=== PATIENT | male | born 1960 | race Caucasian/White ===

== ENCOUNTER 2018-01-29 22:10 | Emergency (ER) | payer MEDICARE, MEDICAID ==
[~2018-01-29] VITALS: Ht 188 cm; Wt 127.2 kg
[~2018-01-29 22:10] MED LIST: ATOR80TA PO; CARB1TAB23 PO; CARV25TA PO; CLOP75TA15 PO; DABI150C PO; FURO-150 PO; GLIM4TAB79 PO; LEVA15HF4 INH; POTA8CAP9 PO; TRAM50TA2 PO; TRAZ150T78 PO; VALS160T2 PO
[2018-01-29 22:49] LABS: BASOPHILS # (AUTO) 0.1 X10'3 (0-0.2); BASOPHILS % (AUTO) 0.4 % (0-1); EOSINOPHILS # (AUTO) 0.3 X10'3 (0-0.9); EOSINOPHILS % (AUTO) 1.9 % (0-6); HEMATOCRIT 52.9 % (42.0-52.0); HEMOGLOBIN 17.4 g/dl (14.0-17.9); LYMPHOCYTES # (AUTO) 3.3 X10'3 (1.1-4.8); LYMPHOCYTES % (AUTO) 23.8 % (21-51); MEAN CORPUSCULAR HEMOGLOBIN 31.7 PG (27.0-31.0); NEUTROPHILS # (AUTO) 9.2 X10'3 (1.8-7.7); NEUTROPHILS % (AUTO) 66.9 % (42-75); PLATELET COUNT 202 X10'3 (140-440); RED BLOOD COUNT 5.51 X10'6 (4.70-6.10); RED CELL DISTRIBUTION WIDTH 14.7 % (11.5-14.5); WHITE BLOOD COUNT 13.8 X10'3 (4.5-11.0)
[2018-01-29 23:05] LABS: ALANINE AMINOTRANSFERASE 9 U/L (12-78); ALBUMIN 3.4 G/DL (3.4-5.0); ALBUMIN/GLOBULIN RATIO 0.8 (1.1-1.5); ALKALINE PHOSPHATASE 74 IU/L (46-116); ANION GAP 10 (8-16); ASPARTATE AMINO TRANSFERASE 16 U/L (10-37); BILIRUBIN,TOTAL 0.4 MG/DL (0.1-1.0); BLOOD UREA NITROGEN 32 MG/DL (7-18); BUN/CREATININE RATIO 23.9 (5.4-32.0); CALCIUM 8.9 MG/DL (8.5-10.1); CHLORIDE 100 MMOL/L (99-107); CREATININE 1.34 MG/DL (0.60-1.10); GLUCOSE 227 MG/DL (70-104); POTASSIUM 4.3 MMOL/L (3.5-5.1); SODIUM 138 MMOL/L (135-145); TOTAL PROTEIN 7.6 G/DL (6.4-8.2); eGFR 55 ML/MIN
[2018-01-29 23:14] LABS: INR 1.2 INR; PARTIAL THROMBOPLASTIN TIME 40 SECONDS (22-32)
[2018-01-30] MEDS ORDERED: clindamycin phosphate 150mg/ml inj. IM ONE
[2018-01-30] MEDS ORDERED: CLIN300C70 PO (00:03)
[2018-01-30 00:16] VITALS: BP 140/77
== END 2018-01-30 00:19 | disposition home or self-care (01) ==
LOC: ER 22:11
DX: L03.115 Cellulitis of right lower limb (principal); I10 Essential (primary) hypertension; E11.9 Type 2 diabetes mellitus without complications; Z98.890 Other specified postprocedural states; Z79.899 Other long term (current) drug therapy; Z86.718 Personal history of other venous thrombosis and embolism; Z79.01 Long term (current) use of anticoagulants
CPT/HCPCS: 36415; 80053; 85025; 85610; 85730; 93005; 93971; 96372; 99284; J3490

== ENCOUNTER 2018-10-22 21:35 | Emergency (ER) | payer MEDICARE, MEDICAID ==
[~2018-10-22] VITALS: Ht 190.5 cm; Wt 136.1 kg
[~2018-10-22 21:35] MED LIST changes: +GLIM4TAB4 PO; -GLIM4TAB79 PO; +POTA8CAP20 PO; -POTA8CAP9 PO
[2018-10-22] MEDS ORDERED: ondansetron/PF 4mg/2ml inj IV ONE ×2 (21:45→22:45)
[2018-10-22] MEDS ORDERED: fentaNYL/PF 50MCG/1 ML 2ML syringe IV ONE ×3 (21:45→23:20)
[2018-10-22] MEDS ORDERED: HYDR-4353 PO (22:19)
[2018-10-22] MEDS ORDERED: ONDA4TAB6 PO (22:19)
[2018-10-22 22:21] VITALS: BP 136/73
[2018-10-22] MEDS ORDERED: HYDROcodone/acetaminophen 10/325mg tab PO ONE (22:45)
== END 2018-10-22 23:44 | disposition home or self-care (01) ==
LOC: ER 21:35
DX: S42.211A Unspecified displaced fracture of surgical neck of right humerus, initial encounter for closed fracture (principal); I48.91 Unspecified atrial fibrillation; I10 Essential (primary) hypertension; E11.9 Type 2 diabetes mellitus without complications; Z95.1 Presence of aortocoronary bypass graft; Z98.890 Other specified postprocedural states; Z79.899 Other long term (current) drug therapy; W18.09XA Striking against other object with subsequent fall, initial encounter; Y93.89 Activity, other specified; Y92.89 Other specified places as the place of occurrence of the external cause; Y99.8 Other external cause status
CPT/HCPCS: 73030; 96374; 96375; 96376; 99284; J2405; J3010

== ENCOUNTER 2019-10-05 01:10 | Emergency (ER) | payer MEDICARE, MEDICAID ==
[~2019-10-05] VITALS: Ht 188 cm; Wt 122.7 kg
[~2019-10-05 01:10] MED LIST changes: -GLIM4TAB4 PO; +GLIM4TAB7 PO; +ONDA4TAB6 PO
[2019-10-05 01:17] VITALS: BP 108/69
--- NOTE | 2019-10-05 01:41 | NUR ---
Pt alert/oriented states he did not hit his head, but rather slipped off the bed and landed on his buttocks.
== END 2019-10-05 03:33 | disposition home or self-care (01) ==
LOC: ER 01:10
DX: M96.831 Postprocedural hemorrhage of a musculoskeletal structure following other procedure (principal); I48.91 Unspecified atrial fibrillation; I10 Essential (primary) hypertension; E11.9 Type 2 diabetes mellitus without complications; Z95.1 Presence of aortocoronary bypass graft; Z98.890 Other specified postprocedural states; Z72.89 Other problems related to lifestyle; Z79.899 Other long term (current) drug therapy
CPT/HCPCS: 99284

== ENCOUNTER 2019-12-01 07:40 | Emergency (ER) | payer MEDICARE, MEDICAID ==
[~2019-12-01] VITALS: Ht 165.1 cm; Wt 127.3 kg
--- NOTE | 2019-12-01 10:01 | NUR ---
discussed pt/s c/o nausea w/ blanca burdick; new order for zofran 4mg po recevied
--- NOTE | 2019-12-01 10:09 | NUR ---
Patient resting in position of comfort, visualized wound and aknowledged order for Zofran for patient's nausea.
[2019-12-01] MEDS ORDERED: ondansetron 4mg rapidly disintigrating tab PO ONE (10:10)
--- NOTE | 2019-12-01 11:07 | NUR ---
Patient states relief from nausea, resting comfortably
[2019-12-01] MEDS ORDERED: CefTRIAXone/D5W-Rocephin 1gm 50 ML IV ONE (11:50)
[2019-12-01] MEDS ORDERED: normal saline 1000ML IV soln IVB ONE ×3 (11:50→18:30)
[2019-12-01] MEDS ORDERED: diltiazem 5mg/ml 5ml inj. IV ONE ×3 (11:55→18:30)
[2019-12-01 12:27] LABS: BASOPHILS # (AUTO) 0.1 X10'3 (0-0.2); BASOPHILS % (AUTO) 0.3 % (0-1); EOSINOPHILS % (AUTO) 0.1 % (0-6); HEMATOCRIT 48.5 % (42.0-52.0); HEMOGLOBIN 16.2 g/dl (14.0-17.9); LYMPHOCYTES # (AUTO) 1.1 X10'3 (1.1-4.8); LYMPHOCYTES % (AUTO) 6.5 % (21-51); MEAN CORPUSCULAR HEMOGLOBIN 32.4 PG (27.0-31.0); MEAN CORPUSCULAR HGB CONC 33.5 g/dL (33.0-36.5); MEAN CORPUSCULAR VOLUME 96.8 FL (78-98); MEAN PLATELET VOLUME 7.9 FL (7.4-10.4); MONOCYTES # (AUTO) 1.6 X10'3 (0-0.9); MONOCYTES % (AUTO) 9.3 % (2-12); NEUTROPHILS # (AUTO) 14.7 X10'3 (1.8-7.7); NEUTROPHILS % (AUTO) 83.8 % (42-75); PLATELET COUNT 225 X10'3 (140-440); RED BLOOD COUNT 5.01 X10'6 (4.70-6.10); RED CELL DISTRIBUTION WIDTH 14.3 % (11.5-14.5); WHITE BLOOD COUNT 17.6 X10'3 (4.5-11.0)
--- NOTE | 2019-12-01 12:32 | NUR ---
Vascular in room with patient
[2019-12-01 12:43] LABS: ALANINE AMINOTRANSFERASE 29 U/L (12-78); ALBUMIN 3.4 G/DL (3.4-5.0); ALBUMIN/GLOBULIN RATIO 0.6 (1.1-1.5); ALKALINE PHOSPHATASE 86 IU/L (46-116); ANION GAP 9 (8-16); ASPARTATE AMINO TRANSFERASE 16 U/L (10-37); BILIRUBIN,TOTAL 0.6 MG/DL (0.1-1.0); BLOOD UREA NITROGEN 25 MG/DL (7-18); BUN/CREATININE RATIO 26.9 (5.4-32.0); CHLORIDE 98 MMOL/L (99-107); CREATININE 0.93 MG/DL (0.60-1.10); GLUCOSE 175 MG/DL (70-104); SODIUM 137 MMOL/L (135-145); TOTAL CARBON DIOXIDE 30.5 MMOL/L (24-32); TOTAL PROTEIN 8.8 G/DL (6.4-8.2); eGFR 84 ML/MIN
[2019-12-01] MEDS ORDERED: vancomycin/NS 1 GM ADD-VANTAGE 250 ML X 1 DOSE IV ONE (13:40)
--- NOTE | 2019-12-01 13:50 | NUR ---
Spoke to Sherrie Tam and Dr. Baldwin about patient's complaint of pain and persisting elevated heart rate. Order for 4mg morphine IV, Zofran 4mg IV, and Cardizem 10mg IV given by Dr. Baldwin and Sherrie.
[2019-12-01] MEDS ORDERED: ondansetron/PF 4mg/2ml inj IV ONE (13:55)
[2019-12-01] MEDS ORDERED: morphine 4 MG/ML inj SYRINge IV ONE ×3 (13:55→20:25)
[2019-12-01] MEDS ORDERED: iohexol 300mg/ml 100ml inj. ONE (14:10)
[2019-12-01] MEDS ORDERED: MESSAGE TO NURSING PO SCH (14:35)
--- NOTE | 2019-12-01 14:45 | NUR ---
Patient to CT. Called pharmacy to confirm patient not taking any Metformin containing medications.
--- NOTE | 2019-12-01 15:14 | NUR ---
Patient requests milk and more pain medication. Sherrie Tam notified and order for 4mg morphine IV obtained. She wants him to wait for CT read before any food or drink.
[2019-12-01] MEDS ORDERED: TRAZ-256 PO (16:23)
[2019-12-01] MEDS ORDERED: GABA300C PO (16:23)
[2019-12-01] MEDS ORDERED: APIX5TAB3 PO (16:23)
[2019-12-01] MEDS ORDERED: EZET10TA6 PO (16:23)
[2019-12-01] MEDS ORDERED: CARV12.5 PO (16:23)
[2019-12-01] MEDS ORDERED: HYDR-3972 PO (16:23)
[2019-12-01] MEDS ORDERED: DAPA10TA PO (16:23)
[2019-12-01] MEDS ORDERED: ALBU18HF2 INH (16:23)
[2019-12-01] MEDS ORDERED: piperacillin/tazo 4.5gm/100ml 100 ML IV STA (18:24)
--- NOTE | 2019-12-01 18:26 | NUR ---
PT GIVEN PITCHER OF ICE WATER. DINNER TRAY ORDERED. URINAL EMPTIED, 600 CC'S LIGHT YELLOW CLEAR URINE.
[2019-12-01] MEDS ORDERED: carVEDilol 12.5mg tablet PO ONE (18:30)
--- NOTE | 2019-12-01 18:32 | NUR ---
Spoke to Sherrie about heart rate which is elevated again. Additional orders placed.
[2019-12-01] MEDS ORDERED: gabapentin 300mg capsule PO ONE ×2 (21:50)
[2019-12-01 22:39] VITALS: BP 129/76
== END 2019-12-01 22:39 | disposition short-term general hospital (02) ==
LOC: ER 07:41
DX: T81.31XA Disruption of external operation (surgical) wound, not elsewhere classified, initial encounter (principal); L03.116 Cellulitis of left lower limb; I48.91 Unspecified atrial fibrillation; I10 Essential (primary) hypertension; E11.9 Type 2 diabetes mellitus without complications; Z95.1 Presence of aortocoronary bypass graft; Z98.890 Other specified postprocedural states; Z79.899 Other long term (current) drug therapy; Y92.89 Other specified places as the place of occurrence of the external cause
CPT/HCPCS: 36415; 73701; 80053; 83605; 85025; 85610; 87040; 93922; 93926; 93971; 96365; 96366; 96367; 96375; 96376; 99285; J0696; J2270; J2405; J2543; J3370; J7030; Q9967; J3490

== ENCOUNTER 2020-12-08 11:38 | Day surgery (SDC) | payer MEDICARE, MEDICAID ==
[2020-12-08] VITALS (12 sets, daily range): BP systolic 130–181; BP diastolic 67–118
[~2020-12-08] VITALS: Ht 190.5 cm; Wt 136.7 kg
[~2020-12-08 11:38] MED LIST changes: +ALBU18HF2 INH; +APIX5TAB3 PO; +CARV12.5 PO; -CARV25TA PO; -CLOP75TA15 PO; -DABI150C PO; +DAPA10TA PO; +EZET10TA6 PO; +GABA300C PO; +HYDR-3972 PO; -LEVA15HF4 INH; -ONDA4TAB6 PO; -POTA8CAP20 PO; -TRAM50TA2 PO; +TRAZ-256 PO; -TRAZ150T78 PO; -VALS160T2 PO
[2020-12-08] MEDS ORDERED: dextrose ORAL solution 15 GM/59 ML bottle PO PRN ×2 (12:00)
[2020-12-08] MEDS ORDERED: diphenhydrAMINE 25mg capsule PO PRN (12:00)
[2020-12-08] MEDS ORDERED: LORazepam 0.5 MG tablet PO PRN (12:00)
[2020-12-08] MEDS ORDERED: nitroGLYCERIN 0.4mg SUBLingual tab SL PRN (12:00)
[2020-12-08] MEDS ORDERED: glucagon, human recombinant 1mg kit SUBCUT PRN (12:00)
[2020-12-08] MEDS ORDERED: normal saline 1,000 ML IV SCH (12:00)
[2020-12-08] MEDS ORDERED: MESSAGE TO PHARMACY PO ONE (12:00)
[2020-12-08] MEDS ORDERED: dextrose 50%-water 50ml dispensing syringe IV PRN ×2 (12:00)
[2020-12-08] MEDS ORDERED: insulin Lispro (HumaLOG) vial - multi-dose SQ SCH (12:00)
[2020-12-08 12:41] LABS: BASOPHILS # (AUTO) 0.1 X10'3 (0-0.2); BASOPHILS % (AUTO) 0.6 % (0-1); EOSINOPHILS # (AUTO) 0.2 X10'3 (0-0.9); EOSINOPHILS % (AUTO) 2.3 % (0-6); HEMOGLOBIN 17.6 g/dl (14.0-17.9); LYMPHOCYTES # (AUTO) 2.5 X10'3 (1.1-4.8); LYMPHOCYTES % (AUTO) 26.9 % (21-51); MEAN CORPUSCULAR HEMOGLOBIN 32.6 PG (27.0-31.0); MEAN CORPUSCULAR HGB CONC 33.9 g/dL (33.0-36.5); MEAN CORPUSCULAR VOLUME 96.2 FL (78-98); MEAN PLATELET VOLUME 8.1 FL (7.4-10.4); MONOCYTES # (AUTO) 0.6 X10'3 (0-0.9); MONOCYTES % (AUTO) 6.1 % (2-12); NEUTROPHILS # (AUTO) 5.9 X10'3 (1.8-7.7); NEUTROPHILS % (AUTO) 64.1 % (42-75); PLATELET COUNT 218 X10'3 (140-440); RED BLOOD COUNT 5.41 X10'6 (4.70-6.10); RED CELL DISTRIBUTION WIDTH 14.9 % (11.5-14.5); WHITE BLOOD COUNT 9.2 X10'3 (4.5-11.0)
[2020-12-08 12:53] LABS: PARTIAL THROMBOPLASTIN TIME 26 SECONDS (22-32)
[2020-12-08 13:00] LABS: ALBUMIN 3.5 G/DL (3.4-5.0); ANION GAP 9 (8-16); BLOOD UREA NITROGEN 17 MG/DL (7-18); BUN/CREATININE RATIO 20.5 (5.4-32.0); CALCIUM 9.1 MG/DL (8.5-10.1); CHLORIDE 105 MMOL/L (99-107); CREATININE 0.83 MG/DL (0.60-1.10); GLUCOSE 206 MG/DL (70-104); POTASSIUM 4.2 MMOL/L (3.5-5.1); SODIUM 140 MMOL/L (135-145); TOTAL CARBON DIOXIDE 25.9 MMOL/L (24-32); eGFR > 90 ML/MIN
[2020-12-08] MEDS ORDERED: LIDOcaine 1% (10mg/ml)w/preservative injection 20ml MDV ONE (13:04)
[2020-12-08] MEDS ORDERED: nitroGLYCERIN-Tridil 50MG/D5W 250 ML IV ONE (13:04)
[2020-12-08] MEDS ORDERED: midazolam 1 mg/ML 2ml injection ONE ×2 (13:04→13:55)
[2020-12-08] MEDS ORDERED: fentaNYL/PF 50MCG/1 ML 2ML syringe ONE ×2 (13:04→13:55)
[2020-12-08] MEDS ORDERED: iohexol 350MG/ML 100ml bottle IV ONE (13:05)
[2020-12-08] MEDS ORDERED: iohexol 350 MG/ML 50ML vial IV ONE (13:05)
[2020-12-08] MEDS ORDERED: LORA10TA7 PO (13:11)
[2020-12-08] MEDS ORDERED: CARV25TA5 PO (13:11)
[2020-12-08] MEDS ORDERED: OXAZEpam 15mg capsule PO PRN (14:45)
[2020-12-08] MEDS ORDERED: normal saline 1000ml 1,000 ML IV SCH (14:45)
[2020-12-08] MEDS ORDERED: proCHLORperazine 10 MG/2 ml inj IV PRN (14:45)
[2020-12-08] MEDS ORDERED: FLU VACC QS2021-22(6MOS UP)/PF 60 MCG/0.5 ML SYRINGE IM ONE (14:45)
[2020-12-08] MEDS ORDERED: ondansetron/PF 4mg/2ml inj IV PRN (14:45)
[2020-12-08] MEDS ORDERED: HYDROcodone/acetaminophen 10/325mg tab PO PRN (14:45)
[2020-12-08] MEDS ORDERED: HYDROcodone/acetaminophen 5mg/325mg tablet PO PRN (14:45)
[2020-12-08] MEDS ORDERED: carVEDilol 12.5mg tablet PO ONE (15:00)
[2020-12-08] MEDS ORDERED: insulin glargine (Lantus) pen - multi-dose SQ SCH (21:00)
== END 2020-12-08 20:48 | disposition home or self-care (01) ==
LOC: SSTAY O 11:38
PROVIDERS: ATTEND Internal Medicine Cardiovascular Disease
DX: R94.39 Abnormal result of other cardiovascular function study (principal); I25.10 Atherosclerotic heart disease of native coronary artery without angina pectoris; E11.9 Type 2 diabetes mellitus without complications; F32.9 Major depressive disorder, single episode, unspecified; I10 Essential (primary) hypertension; J44.9 Chronic obstructive pulmonary disease, unspecified; I48.20 Chronic atrial fibrillation, unspecified; I42.9 Cardiomyopathy, unspecified; F41.1 Generalized anxiety disorder; F17.210 Nicotine dependence, cigarettes, uncomplicated; F12.90 Cannabis use, unspecified, uncomplicated; E78.5 Hyperlipidemia, unspecified; Z79.01 Long term (current) use of anticoagulants; Z79.84 Long term (current) use of oral hypoglycemic drugs; Z79.899 Other long term (current) drug therapy; Z98.890 Other specified postprocedural states
CPT/HCPCS: 36415; 71046; 80048; 82948; 83880; 85025; 85610; 85730; 93005; 93458; 99152; 99153; C1760; C1769; J1644; J2001; J2250; J3010; J7030; Q0163; Q9967; 93459; A4620; A6258; J1815; J3490

== ENCOUNTER 2021-05-24 11:07 | Emergency (ER) | payer MEDICARE, MEDICAID ==
[~2021-05-24] VITALS: Ht 190.5 cm; Wt 136.4 kg
[~2021-05-24 11:07] MED LIST changes: -ALBU18HF2 INH; -CARV12.5 PO; +CARV25TA5 PO; +LORA10TA7 PO
[2021-05-24 11:13] VITALS: BP 143/85
[2021-05-24] MEDS ORDERED: CYCL-1 PO (13:34)
[2021-05-24] MEDS ORDERED: ketorolac trometh. 30mg/ml inj. IM ONE (13:35)
[2021-05-24] MEDS ORDERED: orphenadrine citrate 60mg/2ml inj. IM ONE (13:35)
== END 2021-05-24 14:22 | disposition home or self-care (01) ==
LOC: ER 11:08
DX: S39.012A Strain of muscle, fascia and tendon of lower back, initial encounter (principal); M54.2 Cervicalgia; M25.511 Pain in right shoulder; G89.29 Other chronic pain; I48.91 Unspecified atrial fibrillation; I10 Essential (primary) hypertension; E11.9 Type 2 diabetes mellitus without complications; Z86.79 Personal history of other diseases of the circulatory system; Z95.5 Presence of coronary angioplasty implant and graft; Z72.89 Other problems related to lifestyle; Z79.899 Other long term (current) drug therapy; Z98.890 Other specified postprocedural states; X58.XXXA Exposure to other specified factors, initial encounter; Y93.89 Activity, other specified; Y92.89 Other specified places as the place of occurrence of the external cause; Y99.8 Other external cause status
CPT/HCPCS: 96372; 99284; J1885; J2360

== ENCOUNTER 2021-10-03 06:20 | Emergency (ER) | payer MEDICARE, MEDICAID ==
[~2021-10-03] VITALS: Ht 188 cm; Wt 136.4 kg
[~2021-10-03 06:20] MED LIST changes: +CARB-312 PO; -CARB1TAB23 PO; +CYCL-1 PO
[2021-10-03 06:32] VITALS: BP 136/88
[2021-10-03] MEDS ORDERED: COLC0.6T72 PO (07:22)
== END 2021-10-03 07:32 | disposition home or self-care (01) ==
LOC: ER 06:21
DX: M10.9 Gout, unspecified (principal); I10 Essential (primary) hypertension; E11.9 Type 2 diabetes mellitus without complications; G89.29 Other chronic pain; M54.50 Low back pain, unspecified
CPT/HCPCS: 99283

== ENCOUNTER 2022-01-15 17:01 | Emergency (ER) | payer MEDICARE, MEDICAID ==
[~2022-01-15] VITALS: Ht 190.5 cm; Wt 131.8 kg
[~2022-01-15 17:01] MED LIST changes: +COLC0.6T72 PO
[2022-01-15 17:42] VITALS: BP 149/98
[2022-01-15 18:23] LABS: BASOPHILS % (AUTO) 0.3 % (0-1); EOSINOPHILS # (AUTO) 0.1 X10'3 (0-0.9); MEAN CORPUSCULAR HEMOGLOBIN 30.3 PG (27.0-31.0); MEAN CORPUSCULAR HGB CONC 32.7 g/dL (33.0-36.5); MEAN CORPUSCULAR VOLUME 92.7 FL (78-98); MEAN PLATELET VOLUME 7.9 FL (7.4-10.4); MONOCYTES % (AUTO) 10.6 % (2-12); NEUTROPHILS # (AUTO) 6.4 X10'3 (1.8-7.7); NEUTROPHILS % (AUTO) 67.1 % (42-75); PLATELET COUNT 199 X10'3 (140-440); RED BLOOD COUNT 6.59 X10'6 (4.70-6.10); RED CELL DISTRIBUTION WIDTH 16.1 % (11.5-14.5); WHITE BLOOD COUNT 9.5 X10'3 (4.5-11.0)
[2022-01-15 18:30] LABS: HEMATOCRIT 61.1 % (42.0-52.0)
[2022-01-15 18:43] LABS: ALANINE AMINOTRANSFERASE 15 U/L (12-78); ALBUMIN 3.5 G/DL (3.4-5.0); ALBUMIN/GLOBULIN RATIO 0.7 (1.1-1.5); ALKALINE PHOSPHATASE 80 IU/L (46-116); ANION GAP 10 (8-16); ASPARTATE AMINO TRANSFERASE 13 U/L (10-37); BILIRUBIN,TOTAL 0.5 MG/DL (0.1-1.0); BLOOD UREA NITROGEN 20 MG/DL (7-18); CHLORIDE 100 MMOL/L (99-107); CREATININE 1.05 MG/DL (0.60-1.10); GLUCOSE 157 MG/DL (70-104); POTASSIUM 4.1 MMOL/L (3.5-5.1); SODIUM 140 MMOL/L (135-145); TOTAL CARBON DIOXIDE 29.8 MMOL/L (24-32); TOTAL PROTEIN 8.8 G/DL (6.4-8.2); eGFR 72 ML/MIN
[2022-01-16] MEDS ORDERED: normal saline 1000ML IV soln IVB ONE (00:50)
[2022-01-16] MEDS ORDERED: CEPH-585 PO (01:24)
[2022-01-16] MEDS ORDERED: cephalexin 500mg capsule PO ONE (01:30)
== END 2022-01-16 02:42 | disposition home or self-care (01) ==
LOC: ER 17:03
DX: L03.116 Cellulitis of left lower limb (principal); D75.1 Secondary polycythemia; I10 Essential (primary) hypertension; E11.9 Type 2 diabetes mellitus without complications; G89.29 Other chronic pain
CPT/HCPCS: 36415; 80053; 83605; 84145; 85025; 87040; 93971; 96360; 99284; J7030

== ENCOUNTER 2023-03-21 11:49 | Emergency (ER) | payer MEDICARE, MEDICAID ==
[~2023-03-21] VITALS: Ht 190.5 cm; Wt 122.7 kg
[2023-03-21] MEDS ORDERED: NAPR-56 PO (12:55)
[2023-03-21] MEDS ORDERED: CYCL-1 PO (12:55)
[2023-03-21] MEDS: diazepam inj 5 MG/ML inj. IM ONE (13:07)
[2023-03-21] MEDS: ketorolac trometh inj. 60 MG/2 ML VIAL IM ONE (13:07)
[2023-03-21 13:18] VITALS: BP 134/78; PULSE 60; RESP 18; TEMP 98.3; O2SAT 98
== END 2023-03-21 13:25 | disposition home or self-care (01) ==
LOC: ER 11:49
DX: M54.16 Radiculopathy, lumbar region (principal); M54.31 Sciatica, right side; I10 Essential (primary) hypertension; E11.9 Type 2 diabetes mellitus without complications; Z79.899 Other long term (current) drug therapy
CPT/HCPCS: 96372; 99284; J1885; J3360

== ENCOUNTER 2024-10-06 22:59 | Emergency (ER) | payer MEDICARE, MEDICAID ==
[~2024-10-06] VITALS: Ht 190.5 cm; Wt 141.2 kg
[~2024-10-06 22:59] MED LIST changes: +ATOR-429 PO; -ATOR80TA PO; +CARV25TA PO; -CARV25TA5 PO
--- NOTE | 2024-10-06 23:09 | ELECTROCARDIOGRAPH REPORT ---
[facility] Test Date: 2024-10-06 Test Time: 23:07:06 Pat Name: HOLGER DO Department: EMERGENCY ROOM Room: Gender: M Support Group Manager: OLLIE : [id number] Requested By: PAO GUIDRY Order Number: [id number] Reading MD: Measurements Intervals [place] Rate: 100 P: 0 W[place]: 0 QRS: 73 QRSD: 97 T: 35 QT: 370 QTc: 478 Interpretive Statements Atrial fibrillation Low voltage, extremity and precordial leads Borderline prolonged QT interval Baseline wander in lead(s) I,II,aVR,aVL,aVF,V2,V5 Please click the below link to view image of tracing.
[2024-10-06 23:11] VITALS: TEMP 97.8
[2024-10-06 23:16] LABS: MEAN PLATELET VOLUME 7.5 FL (7.4-10.4); RED CELL DISTRIBUTION WIDTH 15.4 % (11.5-14.5)
--- NOTE | 2024-10-06 23:33 | RADIOLOGY REPORT ---
CHEST RADIOGRAPH Indication: CP Technique: 1 view Comparison: None FINDINGS: Lines and Tubes: None Lungs/Pleura: Diffuse bilateral interstitial opacities. No focal consolidation, or evident pleural a bnormality. Cardiomediastinum: Unchanged, upper normal to mildly enlarged heart size. Aortic calcification. Other: No acute osseous abnormality. Cervical hardware. IMPRESSION: 1. No significant change from 2020 comparison exam. Diffuse interstitial opacities likely representi ng edema in the setting of borderline enlarged heart size.
[2024-10-06 23:36] LABS: CREATININE 0.88 MG/DL (0.60-1.10); PRO BRAIN NATRIURETIC PEPTIDE 272 PG/ML (0-125); TOTAL CARBON DIOXIDE 31.5 MMOL/L (24-32); eCRCL 104 ML/MIN; eGFR 88 ML/MIN
--- NOTE | 2024-10-07 00:38 | Physician Documentation ---
History of Present Illness ~ Chief Complaint: Chest Pain Stated Complaint: CHEST PAINS Time Seen by MD: 00:37 Primary Medical Doctor: DR KERNS HPI Patient presents to the emergency room for left-sided chest pain that began while he was watching television. He states this shooting pain that goes down the left side of his chest and into his abdomen intermittently. Not exacerbated relieved by anything. He states that the pain has since settled down since arriving in the emergency room. He does have history of coronary artery disease and atrial fibrillation and reports compliance with his medications and blood thinners. 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 No current pain. Medication Reconciliation Allergies: Coded Allergies: No Known Allergies (Unverified , 05/24/21) Scheduled Apixaban (Eliquis), 1 TAB PO BID, (Reported) Atorvastatin Calcium* (Lipitor*), 1 TABLET PO HS, (Reported) Carbidopa/Levodopa 25/100 MG* (Sinemet 25/100 MG*), 1 TAB PO TID, (Reported) Carvedilol (Carvedilol), 1 TAB PO BID, (Reported) Colchicine (Colchicine), 2 TAB PO DAILY Cyclobenzaprine* (Cyclobenzaprine*), 1 TAB PO TID Dapagliflozin Propanediol (Farxiga), 1 TAB PO DAILY, (Reported) Ezetimibe (Zetia), 1 TAB PO DAILY, (Reported) Furosemide* (Lasix*), 1 TAB PO DAILY, (Reported) Gabapentin (Neurontin), 1 CAP PO TID, (Reported) Glimepiride* (Amaryl*), 4 MG PO BID, (Reported) Loratadine (Loratadine), 1 TAB PO DAILY, (Reported) Trazodone HCl (Trazodone HCl), 1 TAB PO HS, (Reported) Scheduled PRN Cyclobenzaprine* (Cyclobenzaprine*), 1 TAB PO Q8H PRN for muscle spasms Hydrocodone Bit/Acetaminophen (Hydrocodon-Acetaminophn 10-325 tablet), 1 TAB PO Q6H PRN for pain, (Reported) Past Medical History Past Medical History: Atrial Fibrillation, Hypertension, Vascular Disease, Diabetes, Chronic Pain, Chronic Back Pain Past Surgical History: coronary bypass surgery, orthopedic surgeries, other Other Past Surgical History: stents in left leg Patient History: (CAD) Coronary arteriosclerosis FATHER, , Age: 48, Cause: Heart failure uncle Other Past Family History: Extensive history of heart disease and kidney disease Alcohol Use: Sober Lives with: Spouse Lives In: Home Review of Systems ROS All review of systems negative except as per HPI Physical Exam Vital Signs: Temperature: 97.8, Heart Rate: 99, Respiratory Rate: 18, BP: 166/94, Pulse Oximetry: 94, Weight: 141.200 Oxygen Flow Rate: 0 Physical Exam General: Patient is awake, alert, oriented x4 in no acute distress Head: Normocephalic and atraumatic. Eyes: Conjunctival normal. EOMI. PERRL. ENT: Mucous membranes moist. Neck: Supple, trachea is midline. Chest: Clear to auscultation bilaterally without rales, rhonchi, or wheezes. There is no accessory muscle use or retractions. Cardiac: RRR without murmurs, gallops, or rubs. Abd: Soft, nondistended, nontender, with normoactive bowel sounds. No guarding, rebound, or rigidity. Extremities: Normal strength. Normal range of motion. No deformities or edema. No calf tenderness to palpation Progress Results/Orders Results/Orders Orders - MOY GUIDRY MD Chest,Single View (10/06/24 23:19) Monitor (10/06/24 23:07) Saline Lock (10/06/24 23:07) Oxygen (10/06/24 23:07) Hs Troponin I W Calculations (10/07/24 01:07) Hs Troponin I W Calculations (10/07/24 02:07) Completed Orders - MOY GUIDRY MD Chest,Single View (10/06/24 23:19) Cbc/Diff (10/06/24 23:07) BMP (10/06/24 23:07) PBNP (10/06/24 23:07) Electrocardiogram (10/06/24 23:07) Hs Troponin I W Calculations (10/06/24 23:07) Vital Signs 10/06/24 10/07/24 10/07/24 23:11 00:07 00:09 Temp 97.8 Pulse 93 99 Resp 16 16 18 B/P (MAP) 130/88 166/94 (118) Pulse Ox 95 94 O2 Flow Rate 0 Laboratory Tests Test 8/25/25 23:06 White Blood Count 8.8 Red Blood Count 5.03 Hemoglobin 16.4 Hematocrit 49.1 Mean Corpuscular Volume 97.5 Mean Corpuscular Hemoglobin 32.5 H Mean Corpuscular Hemoglobin Concent 33.4 Red Cell Distribution Width 15.4 H Platelet Count 222 Mean Platelet Volume 7.5 Neutrophils (%) (Auto) 51.4 Lymphocytes (%) (Auto) 39.2 Monocytes (%) (Auto) 7.0 Eosinophils (%) (Auto) 1.9 Basophils (%) (Auto) 0.5 Neutrophils # (Auto) 4.5 Lymphocytes # (Auto) 3.5 Monocytes # (Auto) 0.6 Eosinophils # (Auto) 0.2 Basophils # (Auto) 0.0 CBC Comment Sodium Level 139 Potassium Level 4.2 Chloride Level 102 Carbon Dioxide Level 31.5 Anion Gap 6 L Blood Urea Nitrogen 17 Creatinine 0.88 Estimated GFR/1.73 m2 88 BUN/Creatinine Ratio 19.3 Glucose Level 221 H Calcium Level 9.0 Troponin I High Sensitivity 13 Pro-B-Type Natriuretic Peptide 272 H Albumin 3.6 Chemistry Comments EKG/XRAY/CT/US/VASC/MRI EKG : Additional Comment EKG interpreted by myself shows time of 05/01/2006, rate 100, atrial fibrillation, normal axis, no ST changes Chest X-Ray : Additional Comments Exam: CHEST,SINGLE VIEW CHEST RADIOGRAPH Indication: CP Technique: 1 view Comparison: None FINDINGS: Lines and Tubes: None Lungs/Pleura: Diffuse bilateral interstitial opacities. No focal consolidation, or evident pleural abnormality. Cardiomediastinum: Unchanged, upper normal to mildly enlarged heart size. Aortic calcification. Other: No acute osseous abnormality. Cervical hardware. IMPRESSION: 1. No significant change from 2020 comparison exam. Diffuse interstitial opacities likely representing edema in the setting of borderline enlarged heart size. Medical Decision Making Findings Patient presented to the emergency room with atypical left-sided chest pain as per HPI. Differentials include but are not limited to ACS, pulmonary embolism, musculoskeletal pain, aortic pathology therefore emergent labs and chest x-ray ordered. Chest x-ray is reassuring. Troponins reassuring. Patient with a heart score of three. Given patient's risk factors for coronary artery disease I did offer admission however after discussing risks and benefits patient would prefer to follow up with his doctor. ER precautions discussed. Departure Disposition: HOME / SELF CARE / HOMELESS Impression: Primary Impression: Chest pain Condition: Stable Discharge Instructions: Nonspecific Chest Pain, Adult Referrals: NO PRIMARY CARE PROVIDER (PCP) Signature Scribe Signature: No scribe Attestation: The note accurately reflects work and decisions made by me.Moy Guidry MD 10/07/24 00:49 MOY GUIDRY MD Oct 07, 2024 00:38
[2024-10-07 01:04] VITALS: BP 135/72; PULSE 92; RESP 16; O2SAT 94
== END 2024-10-07 01:05 | disposition home or self-care (01) ==
LOC: ER 22:59
DX: R07.89 Other chest pain (principal); R06.02 Shortness of breath; G89.29 Other chronic pain; E11.59 Type 2 diabetes mellitus with other circulatory complications; I10 Essential (primary) hypertension; I25.10 Atherosclerotic heart disease of native coronary artery without angina pectoris; I48.91 Unspecified atrial fibrillation; F10.90 Alcohol use, unspecified, uncomplicated; Z95.1 Presence of aortocoronary bypass graft; Z98.890 Other specified postprocedural states; Y90.9 Presence of alcohol in blood, level not specified
CPT/HCPCS: 36415; 71045; 80048; 83880; 84484; 85025; 93005; 99285